=== PATIENT | male | born 1955 | race Caucasian/White ===

== ENCOUNTER 2016-10-31 23:48 | Observation (INO) | payer OTHER ==
[2016-11-01] MEDS ORDERED: Aspirin Low Dose CHEW TAB* 81 MG PO ONE
[2016-11-01 00:37] LABS: Hematocrit 48 % (42-52); Hemoglobin 16.4 g/dl (14.0-18.0); Mean Corpuscular HGB Conc 34 g/dl (31-36); Mean Corpuscular Hemoglobin 30 pg (27-31); Mean Corpuscular Volume 88 fL (80-94); Mean Platelet Volume 8 um3 (7.4-10.4); Red Blood Count 5.41 10^6/ul (4.0-5.4); Red Cell Distribution Width 14 % (10.5-15); White Blood Count 6.1 10^3/ul (3.5-10.8)
[2016-11-01 00:52] LABS: Albumin 4.1 g/dL (3.2-5.2); BUN/Creatinine Ratio 14.3 (8-20); Calcium 9.2 mg/dL (8.6-10.3); EGFR African American 99.7 (>60); EGFR Non-African American 77.5 (>60); Globulin 2.5 g/dL (2-4); Potassium 3.4 mmol/L (3.5-5.0); Total Bilirubin 0.6 mg/dL (0.2-1.0); Total Protein 6.6 g/dL (6.4-8.9)
[2016-11-01] MEDS ORDERED: Nitroglycerin TAB 0.4 MG* 0.4 MG TAB SL ONE (01:01)
[2016-11-01] MEDS ORDERED: Lidocaine 2% VISCOUS* 15 ML UDC PO ONE (01:07)
[2016-11-01] MEDS ORDERED: Al Hydrox/Mg Hydrox/Simet LIQ* 30 ML UDC PO ONE (01:07)
[2016-11-01] MEDS ORDERED: Nitroglycerin 2% OINT* 1 GM PAK TOPICAL ONE (01:23)
[2016-11-01] MEDS ORDERED: Al Hydrox/Mg Hydrox/Simet LIQ* 30 ML UDC PO PRN (02:06)
[2016-11-01] MEDS ORDERED: Senna TAB PO PRN (02:06)
[2016-11-01] MEDS ORDERED: Ondansetron INJ* 2 MG/ML VIAL IV PRN (02:06)
[2016-11-01] MEDS ORDERED: Docusate CAP* 100 MG PO PRN (02:06)
[2016-11-01] MEDS ORDERED: Acetaminophen TAB* 325 MG PO PRN (02:06)
[2016-11-01] MEDS ORDERED: traZODone TAB* 50 MG TAB PO PRN (02:12)
[2016-11-01] MEDS ORDERED: Zolpidem TAB* 10 MG PO PRN (02:12)
[2016-11-01] MEDS ORDERED: Potassium Chlor TAB* 20 MEQ TAB.ER PO ONE (02:14)
[2016-11-01] MEDS ORDERED: Heparin VIAL(*) 5000 UNITS/ML VIAL (FIVE THOUSAND) SUBCUT SCH (06:00)
[2016-11-01] MEDS ORDERED: Omeprazole CAP* 20 MG PO SCH (06:00)
--- NOTE | 2016-11-01 06:04 | HP ---
CC: Gumaro Almazan MD HISTORY AND PHYSICAL: DATE OF ADMISSION: 11/01/16 TIME OF EVALUATION: 0200. PRIMARY CARE PHYSICIAN: Gumaro Almazan MD CHIEF COMPLAINT: Chest pain and lightheadedness. HISTORY OF PRESENT ILLNESS: This is a 61-year-old male with a past medical history of coronary artery disease, status post PCI who presents to the emergency room with 3 days of worsening epigastric pain, intercostal rib pain and lightheadedness. The patient states this began 3 days ago with some epigastric pain that seemed to be positional and then developed bilateral rib pain and then he was developing episodes of lightheadedness with worsening palpitations. This all got progressively worse. He became nauseated this evening with increasing heartburn and burping and was concerned for a cardiac issues and came to the emergency room for further evaluation. The patient has had issues with palpitations since February. He had a nuclear stress test done. He had an echocardiogram back in January and a sleep study in February and all were normal. The patient denies any changes in his diet, any new medication changes or he went up on his Toprol from 25 to 50 mg over 2 weeks ago and he was started on trazodone for sleep. He denies any fever, no URI illness. No vomiting. He did have some nausea. No diarrhea. No abdominal pain. No swelling of his legs. No weight changes. No chest pain at this time. He had a GI cocktail and nitro and that seemed to improve his symptoms. Otherwise, remaining review of systems negative. In the emergency room, the patient had labs, imaging, as mentioned was given a GI cocktail and sublingual nitro and was referred to the hospitalist service for further evaluation. PAST MEDICAL HISTORY: 1. GERD. 2. History of PVCs. 3. Hyperlipidemia. 4. History of coronary artery disease, status post ND in 1996, status post PCI and angioplasty to the right coronary artery. MEDICATIONS: 1. Nexium 40 mg p.o. daily. 2. Toprol 50 mg p.o. in the morning. 3. Lipitor 10 mg p.o. daily. 4. Niaspan 2000 mg daily. 5. Zetia 10 mg daily. 6. Aspirin 81 mg daily. 7. Trazodone unknown dose. 8. Ambien 10 mg daily at bedtime as needed. ALLERGIES: No known drug allergies. FAMILY HISTORY: No family history of other coronary artery disease. SOCIAL HISTORY: Quit smoking more than 30 years ago. At that time, smoked less than half a pack per day off and on for 20 years. He has about 2 drinks per week and works in IT. His healthcare proxy is his daughter, Huyen, who is a PA at [employer]. He lives at home with his . CODE STATUS: Full code. REVIEW OF SYSTEMS: A 14-point review of systems was reviewed. Pertinent positives and negatives as mentioned in the HPI, otherwise negative. PHYSICAL EXAM: GENERAL: No acute distress, resting comfortably with his and daughter at the bedside. VITALS: Temp 97.5, pulse rate 63, respiratory rate 16, oxygen saturation 93% on room air, blood pressure 112/72. HEENT: Head normocephalic. Pupils equal, reactive and anicteric. OROPHARYNX: Mucous membranes moist. Some posterior oropharynx erythema. NECK: Supple. No lymphadenopathy. RESPIRATORY: Diminished bilateral breath sounds. No wheeze, rhonchi or rales. CARDIAC: Regular rate and rhythm. Soft systolic murmur heard throughout. No carotid bruits. ABDOMEN: Soft, nontender, nondistended. EXTREMITIES: No clubbing, cyanosis or edema. +1 DPs. NEUROLOGIC: Alert and oriented x3. No focal neurologic deficits. LABORATORY DATA: White count 6.1, hemoglobin 16.4, hematocrit 48, platelets 129. Sodium 139, potassium 3.4, chloride 106, bicarb 28, BUN 14, creatinine 0.98 , glucose 84, lactic acid 1, troponin is 0. RADIOGRAPHIC DATA: EKG shows normal sinus rhythm, no prior EKG to compare to. Chest x-ray on wet read, unremarkable. ASSESSMENT AND PLAN: This is a 61-year-old male with past medical history of coronary artery disease and hyperlipidemia who presents to the emergency room with 3 days of progressively worsening epigastric pain with lightheadedness and palpitations. Epigastric pain, lightheadedness, and palpitations. Assessment: The patient does have a cardiac history. His initial workup is unremarkable. His symptoms improved with a GI cocktail and he has an increase in burping. I suspect this is most likely GI related. However, with his cardiac history, it is not unreasonable to admit him to rule him out. Unfortunately, we do not have stress testing over the next 2 days. I would recommend working him up with rule out troponins and monitor and consider depending on those results keeping him until Thursday for his stress test or sending him home with followup outpatient stress test. I also wonder if the increase in the Toprol was contributing to his symptoms causing due to be orthostatic and bradycardic contributing to his lightheadedness. I did keep him on his regular dose of Toprol and also obtained orthostatics and would monitor on tele to see if this is too much for him. CHRONIC MEDICAL PROBLEMS: 1. GERD. Continue his Nexium and we will continue Maalox as needed. 2. Hyperlipidemia. Continue his Lipitor, Niaspan and Zetia and check a lipid panel in the morning and also continue his aspirin 81 mg. 3. DVT prophylaxis. The patient scores high risk. We will place him on heparin subcu t.i.d. 4. FEN. Place him on a heart healthy diet. 5. Code status. Full code. PATIENT TIME: Greater than 60 minutes were spent doing history and physical, more than half the time was spent in direct patient contact. [id number]/CPS #: [id number] BONITA
--- NOTE | 2016-11-01 07:29 | RAD ---
Indication: Chest pain. Single frontal view of the chest performed at 0020 hours was reviewed. Comparison is made with previous exam dated March 09, 2011. No mediastinal shift is noted. Heart is of normal size and configuration. Lung nance appear clear. IMPRESSION: NO ACTIVE CARDIOPULMONARY DISEASE IS NOTED.
[2016-11-01 08:22] VITALS: BP 117/68
--- NOTE | 2016-11-01 08:29 | PN ---
Subjective Date of Service: 11/01/16 Interval History: Mr. Mathew states that he continues to have some mild discomfort in this epigastric area that is worse with repositioning and reproducible with palpation. He denies other complaint including SOB, nausea, or abdominal pain. Objective Active Medications: Acetaminophen (Tylenol Tab*) 650 mg PO Q4H PRN Al Hydrox/Mg Hydrox/Simethicone (Maalox Plus*) 30 ml PO Q6H PRN Aspirin (Aspirin Ec Low Dose*) 81 mg PO DAILY CHUCK Docusate Sodium (Colace Cap*) 100 mg PO BID PRN Ezetimibe (Zetia Tab*) 10 mg PO 1700 CHUCK Heparin Sodium (Porcine) (Heparin Vial(*)) 5,000 units SUBCUT Q8HR CHUCK Metoprolol Succinate (Toprol Xl Tab*) 50 mg PO DAILY CHUCK Niacin (Niaspan Er Tab*) 2,000 mg PO DAILY CHUCK Omeprazole (Prilosec Cap*) 20 mg PO 0600 CHUCK Ondansetron HCl (Zofran Inj*) 4 mg IV Q4H PRN Senna (Senokot Tab*) 1 tab PO BID PRN Trazodone HCl (Desyrel Tab*) 50 mg PO BEDTIME PRN Zolpidem Tartrate (Ambien Tab*) 10 mg PO BEDTIME PRN Vital Signs: Temp Pulse Resp BP Pulse Ox 98.4 F 64 18 117/68 95 11/01/16 07:28 11/01/16 07:28 11/01/16 07:28 11/01/16 07:28 11/01/16 07:28 Oxygen Devices in Use Now: None Appearance: Male lying in bed in NAD Eyes: No Scleral Icterus Ears/Nose/Mouth/Throat: Mucous Membranes Moist Neck: Trachea Midline Respiratory: Symmetrical Chest Expansion and Respiratory Effort, Clear to Auscultation Cardiovascular: NL Sounds; No Murmurs; No JVD, No Edema Abdominal: NL Sounds; No Tenderness; No Distention Lymphatic: No Cervical Adenopathy Extremities: No Edema Skin: No Rash or Ulcers Neurological: Alert and Oriented x 3, NL Muscle Strength and Tone Nutrition: Taking PO's Result Diagrams: 11/01/16 00:19 11/01/16 00:19 Additional Lab and Data: . Assess/Plan/Problems-Billing Assessment: Mr. Priyanka is a 61 yo male with a PMH of CAD with stent who was admitted on with epigastric pain and concern for ACS. - Patient Problems (1) Epigastric pain Comment: - Associated with lightheadedness and rib pain. At this point is seems likely musculoskeletal given reproducibility on palpation. - Trops negative x 3. EKG without evidence of ischemia. Plan for outpatient stress test. (2) CAD (coronary artery disease) Comment: - Continue aspirin, zetia, niacin and metoprolol. (3) GERD (gastroesophageal reflux disease) Comment: - Continue omeprazole. (4) Hyperlipidemia Comment: - Continue zetia and niacin. (5) Full code status Current Visit: Yes Status: Acute Code(s): Z78.9 - OTHER SPECIFIED HEALTH STATUS SNOMED Code(s): 860877830 (6) DVT prophylaxis Comment: - Heparin SQ. Status and Disposition: OBV. Discharge to home.
[2016-11-01] MEDS ORDERED: Metoprolol Succinate XL TAB* 50 MG PO SCH (09:00)
[2016-11-01] MEDS ORDERED: Aspirin EC Low Dose* 81 MG TAB.EC PO SCH (09:00)
[2016-11-01] MEDS ORDERED: Niacin ER TAB* 500 MG PO SCH (09:00)
[2016-11-01] MEDS ORDERED: Ezetimibe TAB* 10 MG PO SCH (17:00)
--- NOTE | 2016-11-01 22:57 | DS ---
CC: Dr. Almazan * [facility] MEDICINE DISCHARGE SUMMARY: DATE OF ADMISSION: 11/01/16 DATE OF DISCHARGE: 11/01/16 PRIMARY CARE PHYSICIAN: Dr. Almazan. ATTENDING PHYSICIAN: Dr. Ilya Bañuelos * (dictation provided by Michelle Cifuentes NP). PRIMARY DIAGNOSIS: Epigastric pain associated with lightheadedness. SECONDARY DIAGNOSES: 1. Coronary artery disease with PCI. 2. Hyperlipidemia. 3. Hypertension. 4. Gastroesophageal reflux disease. 5. History of premature ventricular contractions. MEDICATIONS AT THE TIME OF DISCHARGE: No medication changes. 1. Nexium 40 mg p.o. daily. 2. Toprol XL 50 mg p.o. in the morning. 3. Lipitor 10 mg p.o. daily. 4. Niacin 2000 mg p.o. daily. 5. Zetia 10 mg p.o. daily. 6. Aspirin 81 mg p.o. daily. 7. Trazodone as directed. 8. Ambien p.r.n. HOSPITAL COURSE: Mr. Mathew is a 61-year-old male with past medical history of coronary artery disease with PCI without stent placement, who presented to the hospital on 11/01/16 with concern for chest discomfort. Please see the dictated H and P from Dr. Monica Dong for complete details. In brief, the patient reported about 3 days of epigastric pain that appeared to be positional and radiated into bilateral ribs. On the day of admission, he developed lightheadedness and palpitations associated with this and therefore, came in for evaluation. His first troponin was 0 and his EKG showed no evidence of ischemia. His chest x-ray was normal. Mr. Mathew was observed in the hospital. He had 2 additional troponins, which were also negative. He has continued to have some mild discomfort in the center of his low chest and into the epigastric area and radiating over to the ribs. This pain is reproducible with palpation and is worsened with position changes. I suspect likely that this is a musculoskeletal injury. He has no inciting event that would have caused the injury. Regardless, the patient's workup thus far has been negative and he is medically stable for discharge to home. Our plans are for him to follow up with [facility] for a stress testing and an outpatient stress test has been ordered. I note the patient did have a negative stress test back in February of this year at [facility]. DISPOSITION: To home. DIET: Low-salt, low-fat. ACTIVITY: As tolerated. FOLLOWUP PLANS: 1. Please follow up with [facility] on Thursday regarding outpatient stress testing. 2. Please follow up with Dr. Almazan as needed after this hospitalization. TIME SPENT: Approximately 60 minutes were spent on the discharge of this patient, more than half time spent with the patient at bedside reviewing the events leading up to this hospitalization, performing the physical examination, and reviewing the plan of care. MICHELLE CIFUENTES NP [id number]/CPS #: [id number] BONITA
== END 2016-11-01 09:55 | disposition home or self-care (01) ==
LOC: ED 23:48 → MEDTELE 11-01 02:20
PROVIDERS: ADMIT Pediatrics; ATTEND Internal Medicine
DX: R10.13 Epigastric pain (principal); R42 Dizziness and giddiness; I25.10 Atherosclerotic heart disease of native coronary artery without angina pectoris; E78.5 Hyperlipidemia, unspecified; I10 Essential (primary) hypertension; K21.9 Gastro-esophageal reflux disease without esophagitis; Z79.82 Long term (current) use of aspirin; Z79.899 Other long term (current) drug therapy; Z87.891 Personal history of nicotine dependence
CPT/HCPCS: 36415; 71010; 80053; 83605; 83735; 84484; 85025; 93005; 96374; 99285; A9270-GY; G0378; J1644

== ENCOUNTER → 2018-03-30 15:05 | Emergency (ER) | payer OTHER ==
[~2018-03-30 15:05] MED LIST: Al Hydrox/Mg Hydrox/Simet LIQ* 30 ML UDC PO ONE; Lidocaine 2% VISCOUS* 15 ML UDC PO ONE; NS 0.9% 1000 ML** 1,000 ML IV ONE
--- NOTE | 2018-03-30 15:38 | ED ---
HPI Chest Pain - HPI Summary HPI Summary: This pt is a 62 y/o male, accompanied by his , presenting to [facility] c/o upper abd pain that began last night and chest pain today. Pt reports his upper abd pain began last night while sitting down watching TV, about 1.5 hours after he had eaten. He notes it initially felt like indigestion but gradually worsened throughout the evening. He notes his pain was under the breast bone accompanied by nausea. His pain was slightly alleviated with lying down. Upon waking up this morning his pain was less severe but still there. After 30 minutes of getting up his pain became worse. He notes he had not had breakfast yet, just water. Additionally notes he felt slight chest tightness and became lightheaded. Denies nausea today, vomiting, SOB. Pt currently rates his pain 1.5 /10 in severity and states he feels weak. Pt notes he had a similar episode happen in 2017 and it was a hiatal hernia. PMHx: hiatal hernia in 2016, PVCs (had holter monitor test a few weeks ago), angioplasty in April 1996 (no stents). Pt states today's symptoms feel different than his symptoms Denies any hx of abd surgeries. - History of Current Complaint Chief Complaint: EDChestPainROMI Time Seen by Provider: 03/30/18 15:17 Hx Obtained From: Patient Onset/Duration: Started Hours Ago, Still Present Timing: Lasting Hours Current Severity: Mild Pain Intensity: 1 Pain Scale Used: 0-10 Numeric Chest Pain Location: Lower Sternal Chest Pain Radiates: No Character: Tightness Aggravating Factor(s): Nothing Alleviating Factor(s): Nothing Associated Signs and Symptoms: Positive: Chest Pain, Weakness, Lightheadedness, Abdominal Pain. Negative: Shortness of Breath, Fever, Chills, Nausea, Vomiting - Allergy/Home Medications Allergies/Adverse Reactions: Allergies Allergy/AdvReac Type Severity Reaction Status Date / Time No Known Allergies Allergy Verified 03/30/18 15:10 Home Medications: Home Medications Amlodipine Besylate [Norvasc 5 mg tab] 5 mg PO DAILY 03/30/18 [History Confirmed 03/30/18] PMH/Surg Hx/FS Hx/Imm Hx Endocrine/Hematology History: Denies: Hx Diabetes Cardiovascular History: Reports: Hx Angioplasty, Hx Hypercholesterolemia, Hx Hypertension, Hx Myocardial Infarction GI History: Reports: Hx Gastroesophageal Reflux Disease Sensory History: Reports: Hx Contacts or Glasses Denies: Hx Cataracts, Hx Hearing Aid Opthamlomology History: Reports: Hx Contacts or Glasses Denies: Hx Cataracts Infectious Disease History: No Infectious Disease History: Denies: Traveled Outside the [place] in Last 30 Days - Family History Known Family History: Positive: Other - No FHx aneurysm - Social History Alcohol Use: Occasionally Alcohol Amount: 2x Substance Use Type: Reports: None Smoking Status (MU): Former Smoker Review of Systems Negative: Fever, Chills Positive: Chest Pain Negative: Shortness Of Breath Positive: Abdominal Pain. Negative: Vomiting, Nausea Neurological: Other - POS: lightheadedness Positive: Weakness All Other Systems Reviewed And Are Negative: Yes Physical Exam - Summary Physical Exam Summary: Appearance: Well-appearing, Well-nourished, lying in bed comfortably Skin: Warm, dry, no obvious rash Eyes: sclera anicteric, no conjunctival pallor ENT: mucous membranes moist, pharynx appears normal Neck: Supple, nontender Respiratory: Clear to auscultation, no signs of respiratory distress Cardiovascular: Normal S1, S2. No murmurs. Normal distal pulses in tibial and radial bilaterally. Abdomen: Soft, nontender, normal active bowel sounds present Musculoskeletal: Normal, Strength/ROM Intact Neurological: A&Ox3, awake and alert, mentation is normal, speech is fluent and appropriate Psychiatric: affect is normal, does not appear anxious or depressed Triage Information Reviewed: Yes Vital Signs On Initial Exam: Initial Vitals Temp Pulse Resp BP Pulse Ox 98.0 F 57 16 157/70 97 03/30/18 15:08 03/30/18 15:08 03/30/18 15:08 03/30/18 15:08 03/30/18 15:08 Vital Signs Reviewed: Yes Diagnostics - Vital Signs Vital Signs Temp Pulse Resp BP Pulse Ox 03/30/18 15:08 98.0 F 57 16 157/70 97 - Laboratory Result Diagrams: 03/30/18 15:54 03/30/18 15:54 Lab Statement: Any lab studies that have been ordered have been reviewed, and results considered in the medical decision making process. - Radiology Chest XR Radiology Interpretation Completed By: Radiologist Summary of Radiographic Findings: IMPRESSION: No radiographic evidence of acute cardiopulmonary disease. Dr. Cárdenas has reviewed this report. - Ultrasound No standard instances Ultrasound Interpretation Completed By: Radiologist Summary of Ultrasound Findings: Gallbladder US IMPRESSION: 1. Homogenously increased echogenicity of the liver parencyma could be seen in the setting of hepatic steatosis or other chronic infiltrative disease of the liver. 2. No sonographically apparent acute abnormalities of the right upper quadrant. Dr. Cárdenas has reviewed this report. - EKG 15:23 Cardiac Rate: NL - at 76 bpm EKG Rhythm: Sinus Rhythm Summary of EKG Findings: Ventricular premature complex. Inferior infarct, old. 18:01 Cardiac Rate: NL - at 94 bpm EKG Rhythm: Sinus Rhythm Summary of EKG Findings: Ventricular bigeminy. Inferior infarct, old. Chest Pain Course/Dx - Course Assessment/Plan: Pt is a 62 y/o male who presents with upper abd pain that began last night and chest pain today. He notes it initially felt like indigestion but gradually worsened throughout the evening yesterday. Upon waking up this morning his pain was less severe but still there. After 30 minutes of getting up his pain became worse. Additionally notes he felt slight chest tightness and became lightheaded. Labs are unremarkable. Two troponins, 4 hours apart, are negative. Chest XR is negative for an acute cardiopulmonary disease. Gallbladder US shows 1. Homogenously increased echogenicity of the liver parencyma could be seen in the setting of hepatic steatosis or other chronic infiltrative disease of the liver. 2. No sonographically apparent acute abnormalities of the right upper quadrant. In the ED course the pt was given IV fluids, maalox, viscous lidocaine. Pt will be discharged home with follow up from her GI. He is instructed to continue her pantoprazole. - Diagnoses Provider Diagnoses: Abdominal pain Discharge - Sign-Out/Discharge Documenting (check all that apply): Patient Departure - Discharge home Patient Received Moderate/Deep Sedation with Procedure: No - Discharge Plan Condition: Good Disposition: HOME Patient Education Materials: Acute Abdominal Pain (ED) Referrals: Gumaro Almazan MD [Primary Care Provider] - Additional Instructions: Continue the pantoprazole but contact your medication specialist as it seems your stomach/esophagus problems are getting worse again. We did not find any sign of a cardiac problem on the tests we did tonight. - Billing Disposition and Condition Condition: GOOD Disposition: Home - Attestation Statements Document Initiated by Scribe: Yes Documenting Scribe: Rea Baez Provider For Whom Scribe is Documenting (Include Credential): Rajeev Cárdenas MD Scribe Attestation: I, Rea Baez, scribed for Rajeev Cárdenas MD on 03/30/18 at 1956. Scribe Documentation Reviewed: Yes Provider Attestation: The documentation as recorded by the scribe, Rea Baez accurately reflects the service I personally performed and the decisions made by me, Rajeev Cárdenas MD Status of Scribe Document: Viewed
[2018-03-30 16:00] LABS: ABS Basophils 0.1 10^3/ul (0-0.2); ABS Eosinophils 0.1 10^3/ul (0-0.6); ABS Lymphocytes 1.5 10^3/ul (1.0-4.8); ABS Monocytes 0.5 10^3/ul (0-0.8); ABS Neutrophils 5.4 10^3/ul (1.5-7.7); ABS Nucleated RBC 0 10^3/ul; Eosinophil % 1.5 %; Hematocrit 51 % (42-52); Hemoglobin 17.8 g/dl (14.0-18.0); Lymphocyte % 19.3 %; Mean Corpuscular HGB Conc 35 g/dl (31-36); Mean Corpuscular Hemoglobin 30 pg (27-31); Mean Corpuscular Volume 88 fL (80-94); Mean Platelet Volume 8.1 fL (7.4-10.4); Nucleated Red Blood Cells % 0.1; Platelet Count 141 10^3/ul (150-450); Red Blood Count 5.86 10^6/ul (4.00-5.40); Red Cell Distribution Width 14 % (10.5-15); White Blood Count 7.6 10^3/ul (3.5-10.8)
[2018-03-30 16:33] LABS: Albumin 4.6 g/dL (3.2-5.2); Albumin/Globulin Ratio 1.8 (1-3); Calcium 9.7 mg/dL (8.6-10.3); EGFR African American 83.6 (>60); EGFR Non-African American 69.1 (>60); Globulin 2.6 g/dL (2-4); Potassium 3.7 mmol/L (3.5-5.0); Total Bilirubin 1.2 mg/dL (0.2-1.0); Total Protein 7.2 g/dL (6.4-8.9)
[2018-03-30 18:50] VITALS: BP 143/83
== END | disposition home or self-care (01) ==
LOC: ED 15:05
DX: R10.10 Upper abdominal pain, unspecified (principal); R00.8 Other abnormalities of heart beat; R07.2 Precordial pain; R42 Dizziness and giddiness; R53.1 Weakness; Z87.891 Personal history of nicotine dependence
CPT/HCPCS: 36415; 71046; 76705; 80053; 84484; 85025; 85379; 93005; 96360; 96361; 99283; A9270-GY

== ENCOUNTER 2018-12-07 21:20 | Emergency (ER) | payer OTHER ==
--- NOTE | 2018-12-07 22:12 | ED ---
HPI Cardiac - HPI Summary HPI Summary: Patient is a 63 y/o M w/ Hx of heart catheterization in May 2017 and MT, angioplasty in 1996 who presents to [facility] with complaints of mid-sternal chest pain and palpitations. He estimates that Sx onset around 1400/1500 today, . He reports that episodes have been intermittent since then, with episodes lasting up to 45 minutes. Pain is characterized as a cramping. He states that he has experienced intermittent chest pain and palpitations in the past, but notes that this chest pain has been a pressure and of a short duration. He has no pain at present. Patient additionally endorses experiencing tachypnea, chills , hot flashes, diaphoresis, diffuse body aches, and some cough but denies SOB and nausea. No recent medication changes are noted. He is a former smoker, states that he drinks 2-3 alcoholic beverages a week, and denies substance usage. Patient reports last nuclear stress test was in April 2018 at [place]. Home medications and allergies are reviewed. - History of Current Complaint Chief Complaint: EDChestPainROMI Stated Complaint: CHEST PAIN PER PT Time Seen by Provider: 12/07/18 21:48 Hx Obtained From: Patient Onset/Duration: Started Hours Ago, Resolved Timing: Intermittent, Lasting Minutes Current Severity: None Pain Scale Used: 0-10 Numeric Chest Pain Location: Mid Sternal Character: Other: - cramping Associated Signs and Symptoms: Positive: Chills, Diaphoresis, Cough, Other: - positive - diffuse body aches, tachypnea, hot flashes, diffuse body aches. Negative: Shortness of Breath, Nausea - Allergy/Home Medications Allergies/Adverse Reactions: Allergies Allergy/AdvReac Type Severity Reaction Status Date / Time No Known Allergies Allergy Verified 03/30/18 15:10 Home Medications: Home Medications C,E,Zinc,Copper 11/Mepnh1z/Lut [Ocuvite Adult 50 Plus Softgel] 1 cap PO DAILY [History Confirmed 12/07/18] Multivitamins/Minerals TAB* [Theragran/minerals TAB*] 1 tab PO DAILY 12/07/18 [ History Confirmed 12/07/18] Nadolol TAB* [Corgard TAB*] 40 mg PO DAILY 12/07/18 [History Confirmed 12/07/18] Pantoprazole TAB * [Protonix TAB*] 40 mg PO DAILY 12/07/18 [History Confirmed ] Potassium Chlor TAB* [Klor Con ER TAB*] 20 meq PO DAILY 12/07/18 [History Confirmed 12/07/18] Rosuvastatin (NF) [Crestor] 20 mg PO DAILY 12/07/18 [History Confirmed 12/07/18] Zolpidem TAB* [Ambien TAB*] 10 mg PO BEDTIME PRN 12/07/18 [History Confirmed ] amLODIPine TAB* [Norvasc 5 mg TAB*] 5 mg PO DAILY 12/07/18 [History Confirmed ] PMH/Surg Hx/FS Hx/Imm Hx Endocrine/Hematology History: Denies: Hx Diabetes Cardiovascular History: Reports: Hx Angioplasty, Hx Hypercholesterolemia, Hx Hypertension, Hx Myocardial Infarction GI History: Reports: Hx Gastroesophageal Reflux Disease Comment Only: Other GI Disorders - HEARTBURN Sensory History: Reports: Hx Contacts or Glasses Denies: Hx Cataracts, Hx Hearing Aid Opthamlomology History: Reports: Hx Contacts or Glasses Denies: Hx Cataracts Infectious Disease History: No Infectious Disease History: Denies: Traveled Outside the [place] in Last 30 Days - Family History Known Family History: Positive: Other - No FHx aneurysm - Social History Alcohol Use: Occasionally Alcohol Amount: 2x Substance Use Type: Reports: None Smoking Status (MU): Former Smoker Review of Systems - ROS Summary Review of Systems Summary: Home Medications C,E,Zinc,Copper 11/Bjszt1s/Lut [Ocuvite Adult 50 Plus Softgel] 1 cap PO DAILY [History Confirmed 12/07/18] Multivitamins/Minerals TAB* [Theragran/minerals TAB*] 1 tab PO DAILY 12/07/18 [ History Confirmed 12/07/18] Nadolol TAB* [Corgard TAB*] 40 mg PO DAILY 12/07/18 [History Confirmed 12/07/18] Pantoprazole TAB * [Protonix TAB*] 40 mg PO DAILY 12/07/18 [History Confirmed ] Potassium Chlor TAB* [Klor Con ER TAB*] 20 meq PO DAILY 12/07/18 [History Confirmed 12/07/18] Rosuvastatin (NF) [Crestor] 20 mg PO DAILY 12/07/18 [History Confirmed 12/07/18] Zolpidem TAB* [Ambien TAB*] 10 mg PO BEDTIME PRN 12/07/18 [History Confirmed ] amLODIPine TAB* [Norvasc 5 mg TAB*] 5 mg PO DAILY 12/07/18 [History Confirmed ] Constitutional: Other - positive - hot flashes, diffuse body aches Positive: Chills, Skin Diaphoresis Positive: Palpitations, Chest Pain Respiratory: Other - positive - tachypnea Positive: Cough. Negative: Shortness Of Breath Negative: Nausea All Other Systems Reviewed And Are Negative: Yes Physical Exam - Summary Physical Exam Summary: General: Well-developed, Well-nourished male. No acute distress. HEENT: Normocephalic, Atraumatic. Eyes: Conjuctiva normal, PERRL. Ears: TMs within normal limits. Nares: (-) discharge, (-) erythema. Oropharynx: Clear, mucous membranes moist, (-) exudates. Neck: Soft, FROM, (-) lymphadenopathy, (-) thyromegaly, (-) JVD. Cardiovascular: Normal sinus rhythm, (-) murmur. Lungs: Clear to auscultation bilaterally (-) wheezes, (-) rales, (-) rhonchi. Abdomen: Soft, non-tender, non-distended, (-) organomegaly, normal bowel sounds. Back: (-) CVA tenderness Extremities: No edema. Skin: Warm, dry, (-) rash. Neuro: Alert and oriented x3, no focal deficits. Psychiatric: Mood normal, affect normal. Triage Information Reviewed: Yes Vital Signs On Initial Exam: Initial Vitals Temp Pulse Resp BP Pulse Ox 97.2 F 69 20 167/94 97 12/07/18 21:30 12/07/18 21:30 12/07/18 21:30 12/07/18 21:30 12/07/18 21:30 Vital Signs Reviewed: Yes Procedures - Sedation Patient Received Moderate/Deep Sedation with Procedure: No Diagnostics - Vital Signs Vital Signs Temp Pulse Resp BP Pulse Ox 12/07/18 21:30 97.2 F 69 20 167/94 97 - Laboratory Result Diagrams: 12/07/18 22:18 12/07/18 22:18 Lab Statement: Any lab studies that have been ordered have been reviewed, and results considered in the medical decision making process. - Radiology CXR Radiology Interpretation Completed By: ED Physician Summary of Radiographic Findings: No pneumonia, no pleural effusion, pending official report. - EKG 2123 Cardiac Rate: NL - rate of 65 BPM EKG Rhythm: Sinus Rhythm Summary of EKG Findings: EKG showed NSR with rate of 65 BPM, no STEMI. This EKG was reviewed and interpreted by Dr. Allan. Disposition - Course Course Of Treatment: 63-year-old male with known cardiac presents with chest pain. Workup negative including serial Troponins. Patient feeling much better. Discharged to home, follow up with PCP. follow up sooner for any worsening symptoms. - Diagnoses Provider Diagnoses: Chest pain Discharge ED - Sign-Out/Discharge Documenting (check all that apply): Patient Departure - discharge - Discharge Plan Condition: Stable Disposition: HOME Patient Education Materials: Chest Pain (ED) Referrals: Gumaro Almazan MD [Primary Care Provider] - 3 Days Additional Instructions: Follow up with your primary care provider within 3 days. Return to the ED for any new or worsening symptoms. - Billing Disposition and Condition Condition: STABLE Disposition: Home - Attestation Statements Document Initiated by Christel: Yes Documenting Scribe: Gilberto Moreno Provider For Whom Christel is Documenting (Include Credential): Dr. Colette Allan MD Scribe Attestation: Gilberto Calvin, scribed for Dr. Colette Allan MD on 12/08/18 at 0210. Scribe Documentation Reviewed: Yes Provider Attestation: The documentation as recorded by the christel, Gilberto Moreno accurately reflects the service I personally performed and the decisions made by me, Dr. Colette Allan MD Status of Scribe Document: Viewed
[2018-12-07 22:27] LABS: ABS Basophils 0.1 10^3/ul (0-0.2); ABS Eosinophils 0.2 10^3/ul (0-0.6); ABS Lymphocytes 1.9 10^3/ul (1.0-4.8); ABS Monocytes 0.6 10^3/ul (0-0.8); ABS Neutrophils 4.1 10^3/ul (1.5-7.7); Eosinophil % 2.8 %; Hematocrit 47 % (42-52); Hemoglobin 16.6 g/dL (14.0-18.0); Lymphocyte % 28.1 %; Mean Corpuscular HGB Conc 35 g/dL (31-36); Mean Corpuscular Hemoglobin 30 pg (27-31); Mean Corpuscular Volume 85 fL (80-94); Mean Platelet Volume 7.9 fL (7.4-10.4); Platelet Count 144 10^3/uL (150-450); Red Blood Count 5.52 10^6 /uL (4.18-5.48); Red Cell Distribution Width 14 % (10-15); White Blood Count 6.9 10^3/uL (3.5-10.8)
[2018-12-07 22:33] LABS: INR 0.93 (0.82-1.09)
[2018-12-07 22:42] LABS: Albumin 4.1 g/dL (3.2-5.2); Albumin/Globulin Ratio 1.7 (1-3); Calcium 9.1 mg/dL (8.6-10.3); EGFR Non-African American 75.2 (>60); Globulin 2.4 g/dL (2-4); Potassium 3.8 mmol/L (3.5-5.0); Total Bilirubin 0.6 mg/dL (0.2-1.0); Total Protein 6.5 g/dL (6.4-8.9)
[2018-12-08 01:33] VITALS: BP 103/65
== END 2018-12-08 01:36 | disposition home or self-care (01) ==
LOC: ED 21:20
DX: R07.9 Chest pain, unspecified (principal); E78.00 Pure hypercholesterolemia, unspecified; I10 Essential (primary) hypertension; I25.2 Old myocardial infarction; K21.9 Gastro-esophageal reflux disease without esophagitis; Z87.891 Personal history of nicotine dependence; Z79.899 Other long term (current) drug therapy
CPT/HCPCS: 36415; 71045; 80053; 83605; 83880; 84484; 85025; 85610; 93005; 99283